=== PATIENT | male | born 1960 | race Caucasian/White ===

== ENCOUNTER 2020-01-30 11:21 | Emergency (ER) | payer OTHER ==
[2020-01-30 11:28] VITALS: BP 110/71; PULSE 89; TEMP 97.4; BMI 25.8
[2020-01-30] MEDS ORDERED: KETOROLAC TROMETHAMINE 30 MG/1 ML VIAL IM ONE (11:45)
[2020-01-30] MEDS ORDERED: KETOROLAC TROMETHAMINE 30 MG/1 ML VIAL ONE (11:47)
--- NOTE | 2020-01-30 12:27 | PDOC ---
History of Present Illness - General Chief Complaint: Pain Stated Complaint: RT. FOOT PAIN Time Seen by Provider: 01/30/20 11:31 History Source: Patient Exam Limitations: No Limitations - History of Present Illness Initial Comments: 01/30/20 12:22 Patient is a 59-year-old male who presents to the ED with complaint of right heel pain that started after going for a walk yesterday. He went for a walk in nonsupportive shoes but states he always walks on them. He states he walks daily. He states yesterday his heel began to really hurt him and has gotten progressively worse since then. He denies any fall or injury. He took Tylenol this morning with little relief. He denies any numbness or tingling. The patient has a history of hypertension and no known allergies. Past History - Medical History Allergies/Adverse Reactions: Allergies Allergy/AdvReac Type Severity Reaction Status Date / Time No Known Allergies Allergy Verified 01/30/20 11:28 COPD: No HTN: Yes - Psycho-Social/Smoking History Smoking History: Never smoked - Substance Abuse Hx (Audit-C & DAST Scrn) How often the patient has a drink containing alcohol: Never Score: In Men: 4 or > Positive; In Women: 3 or > Positive: 0 Screen Result (Pos requires Nsg. Audit-10AR): Negative Review of Systems - Review of Systems Comments:: 01/30/20 12:24 - Review of Systems Able to Perform ROS?: Yes Constitutional: No: Fever, Chills, Loss of Appetite, Night Sweats, Weakness HEENTM: No: Eye Pain, Vision changes, Ear Pain, Throat Pain, Throat Swelling, Mouth Pain, Difficulty Swallowing Respiratory: No: Cough, Shortness of Breath, Wheezing, Sputum Production Cardiac (ROS): No: Chest Pain, Chest Tightness, Palpitations, Irregular Heart Beat, Edema ABD/GI: No: Nausea, Vomiting, Abdominal Pain, Diarrhea : No Dysuria, No Hematuria, No Frequency, No Urgency Musculoskeletal: No: Muscle Pain, Back Pain, Joint Pain, Muscle Weakness, Neck Pain; positive: Right foot pain Integumentary: No: Lesions, Rash Neurological: No: Headache, Numbness, Tingling, Weakness, Speech Difficulties *Physical Exam - Vital Signs Last Vital Signs Temp Pulse Resp BP Pulse Ox 97.4 F L 89 18 110/71 98 01/30/20 11:26 01/30/20 11:26 01/30/20 11:26 01/30/20 11:26 01/30/20 11:26 - Physical Exam 01/30/20 12:24 - Physical Exam General Appearance: Nourished, Appropriately Dressed, No Distress Neck: Supple, No Lymphadenopathy (R), No Lymphadenopathy (L), No Rigidity, No Decreased range of motion Respiratory/Chest: Lungs Clear, Normal Breath Sounds. No Respiratory Distress, No Accessory Muscle Use Cardiovascular: Regular Rhythm, Regular Rate, S1, S2 Musculoskeletal: Normal Inspection. No Decreased Range of Motion; minimal reproducible tenderness to the mid heel of the right foot. No step-off appreciated. DP and PT pulses intact. Sensation intact distally. Brisk capillary refill distally. Extremity: Normal Capillary Refill, Normal Inspection Integumentary: Normal Color, Dry. 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 intact, Fully Oriented, Alert, Normal Mood/Affect, Normal Response ED Treatment Course - RADIOLOGY Radiology Studies Ordered: Category Date Time Status FOOT-RIGHT [RAD] Stat Radiology 01/30/20 11:45 Taken - Medications Given in the ED: ED Medications Discontinued Medications Generic Name Dose Route Start Last Admin Trade Name Freq PRN Reason Stop Dose Admin Ketorolac Tromethamine 30 mg 01/30/20 11:45 01/30/20 11:54 Toradol Injection - IM 01/30/20 11:46 30 mg ONCE ONE Administration Medical Decision Making - Medical Decision Making 01/30/20 12:24 Assessment: Patient is a 59-year-old male with right heel pain that started yesterday after an extended walking nonsupportive shoes. Plan: -Toradol 30 mg IM given -Right foot x-ray reviewed showing no acute pathology and no significant heel spur appreciated -Symptoms may be secondary to plantar fasciitis. The patient has been given instructions on how to treat this including wearing more supportive shoes particularly while exercising. He will follow-up with orthopedics for further evaluation and treatment. He understands and agrees with this treatment plan and he is stable for discharge. Discharge - Discharge Information Problems reviewed: Yes Clinical Impression/Diagnosis: Right foot pain, Plantar fasciitis of right foot Condition: Stable Disposition: HOME - Follow up/Referral Referrals: Montaño,Gene A, DO [Staff Physician] - - Patient Discharge Instructions Patient Printed Discharge Instructions: DI for Plantar Fasciitis, DI for Foot Pain Additional Instructions: Ice and elevate your foot. Take ibuprofen or Naprosyn for pain and swelling but be sure to take it with food. You can freeze a bottle of water and roll your foot over it to help with swelling and to stretch the plantar fascia. Follow-up with orthopedics for further evaluation and treatment and a referral has been given to you. Be sure to wear more supportive shoes while exercising and avoid walking barefoot as this can increase the pain. - Post Discharge Activity
== END 2020-01-30 12:39 | disposition home or self-care (01) ==
LOC: JERFT 11:21
PROC: 3E0233Z Introduction of Anti-inflammatory into Muscle, Percutaneous Approach (ICD-10-PCS; principal; 2020-01-30)
DX: M79.671 Pain in right foot (principal); M72.2 Plantar fascial fibromatosis
CPT/HCPCS: 73630-TC-RT-FY; 99284-25